=== PATIENT | female | born 1960 | race Caucasian/White ===

== ENCOUNTER 2022-03-26 11:31 | Emergency (ER) | payer BC ==
[2022-03-26] MEDS ORDERED: Sodium Chloride 0.9% 10 ML Syringe FLUSH PRN (11:57)
[2022-03-26] MEDS: Sodium Chloride 0.9% 1,000 ML IV ONE (12:08)
[2022-03-26] MEDS: Ondansetron 4 MG/2 ML SDV IVPUSH ONE (12:10)
[2022-03-26] MEDS: Morphine 10 MG/ML Syringe IVPUSH ONE (12:11)
[2022-03-26 12:50] LABS: ANION GAP 11.8 meq/L (7-15); CHLORIDE,CL 106 mmol/L (98-107); SODIUM,NA 141 mmol/L (136-145)
[2022-03-26 12:51] LABS: ESTIMATED GFR 76 mL/min (>=60)
[2022-03-26] MEDS: Iopamidol 612 MG/ML 100 ML Bottle IVPUSH STA (13:29)
[2022-03-26] MEDS ORDERED: Morphine 10 MG/ML Syringe ONE (13:46)
[2022-03-26] MEDS: Ketamine 500 mg/10 ML MDV ONE (20:42)
[2022-03-26] MEDS: Lidocaine 2% with EPINEPHrine 1:100,000 20 ML MDV ONE (20:43)
[2022-03-26] MEDS: fentaNYL 100 MCG/2 ML SDV ONE (20:43)
== END 2022-03-26 15:40 ==
LOC: LL.ED 11:44
DX: S32.10XA Unspecified fracture of sacrum, initial encounter for closed fracture (principal); J93.9 Pneumothorax, unspecified; V80.010A Animal-rider injured by fall from or being thrown from horse in noncollision accident, initial encounter
CPT/HCPCS: 32551; 36415; 51702; 71045; 71260; 72125; 74177; 80053; 81001; 83605; 83735; 85025; 96361; 96374; 96375; 96376; 99285; 99285-25; J2270; J2405; J3490; J7030; Q9967